=== PATIENT | male | born 1985 | race Hispanic/Latino ===

== ENCOUNTER 2021-06-11 08:55 | Emergency (ER) | payer SELFPAY ==
[2021-06-11] MEDS ORDERED: Ketorolac Tromethamine 30 MG/ML VIAL ONE (11:26)
== END 2021-06-11 12:31 | disposition home or self-care (01) ==
LOC: CSHERS 08:55
DX: S53.401A Unspecified sprain of right elbow, initial encounter (principal); F17.210 Nicotine dependence, cigarettes, uncomplicated; X50.0XXA Overexertion from strenuous movement or load, initial encounter; Y99.0 Civilian activity done for income or pay
CPT/HCPCS: 96372; J1885

== ENCOUNTER 2022-01-07 19:20 | Emergency (ER) | payer SELFPAY ==
[2022-01-07] MEDS ORDERED: Sulfameth/Trimethoprim DS 800-160mg TAB ONE (20:09)
== END 2022-01-07 20:31 | disposition home or self-care (01) ==
LOC: CSHERS 19:20
DX: L03.116 Cellulitis of left lower limb (principal); F17.210 Nicotine dependence, cigarettes, uncomplicated
CPT/HCPCS: 99283